=== PATIENT | female | born 1965 | race Caucasian/White ===

== ENCOUNTER → 2017-03-17 | Outpatient (CLI) | payer BC ==
--- NOTE | 2017-03-17 14:37 | US ---
HISTORY: Left-sided lump Diagnostic bilateral mammography and targeted left ultrasound. Comparison: None available FINDINGS: Bilateral CC and MLO projections of the right and left breast were obtained utilizing both full-field and push back techniques. Scattered fibroglandular tissue is seen to be present. There is a fairly large and circumscribed round isodense focal asymmetry within the upper outer left breast underlying the skin marker. No significant architectural distortion, mass or clustered microcalcifications can be observed to suggest malignancy. No skin thickening or nipple retraction is appreciated. No path ological lymphadenopathy can be identified. Targeted left-sided ultrasound at 1 o'clock, 7 cm from the nipple demonstrates a circumscribed hypoec hoic parallel oval lesion measuring 3.5 x 2.3 x 2.3 cm, with increased through transmission and no in ternal Doppler flow. IMPRESSION: No evidence of malignancy. Simple left-sided cyst measuring 3.5 cm. ACR CATEGORY: 2 - benign findings FOLLOW-UP EXAM 1 YEAR. Diagnostic CAD was utilized and reviewed. * 0 (ZERO) - ASSESSMENT INCOMPLETE; ADDITIONAL IMAGING IS NEEDED. * 1/ (ONE) - NEGATIVE. * 2/II (TWO) - BENIGN FINDINGS. * 3/III (THREE) - PROBABLY BENIGN FINDING; SHORT INTERVAL FOLLOW-UP SUGGESTED. * 4/IV (FOUR) - SUSPICIOUS ABNORMALITY; BIOPSY SHOULD BE CONSIDERED. * 5/V - HIGHLY SUSPICIOUS OF MALIGNANCY; BIOPSY SHOULD BE PERFORMED. A NEGATIVE X-RAY REPORT SHOULD NOT DELAY BIOPSY IF A DOMINANT OR CLINICALLY SUSPICIOUS MASS IS PRESENT; 4 TO 8 PERCENT OF CANCERS ARE NOT IDENTIFIED BY X-RAY. A NEGA TIVE REPORT MAY REINFORCE THE CLINICAL IMPRESSION. ADENOSIS AND DENSE BREASTS MAY OBSCURE AN UNDERLY ING NEOPLASM. Reported By:
== END | disposition home or self-care (01) | DRG 601 ==
LOC: RAD 12:41
PROVIDERS: ATTEND Obstetrics & Gynecology
DX: R92.8 Other abnormal and inconclusive findings on diagnostic imaging of breast (principal); N60.02 Solitary cyst of left breast
CPT/HCPCS: 76642; 77066